=== PATIENT | male | born 1970 | race African-American/Black ===

== ENCOUNTER 2021-11-17 23:34 | Emergency (ER) | payer OTHER, SELFPAY ==
[2021-11-17] MEDS ORDERED: Boostrix 0.5 ML (Tdap) VIAL ONE (23:40)
[2021-11-17] MEDS ORDERED: CEFAZOLIN 1 GM VIAL ONE ×2 (23:41→23:42)
[2021-11-17 23:49] LABS: #Basophils 0.1 thou/uL (0.0-0.2); #Eosinphils 0.1 thou/uL (0.0-0.7); #Monocytes 0.7 thou/uL (0.11-0.59); #Neutrophils 4.4 thou/uL (1.40-6.50); %Basophils 1.1 % (0.0-1.0); %Eosinophils 1.2 % (0.0-10.0); %Lymphocytes 27.7 % (21.0-51.0); %Monocytes 9.8 % (0.0-10.0); %Neutrophils 60.3 % (42.0-75.0); Hemoglobin 14.3 g/dL (14.0-18.0); Mean Corpuscular HGB CONC 34.6 g/dL (32.0-36.0); Mean Corpuscular Hemoglobin 34.4 pg (27.0-31.0); Mean Corpuscular Volume 99.5 fL (78.0-98.0); Mean Platelet Volume 6.1 fL (7.4-10.4); Platelet Count 253 thou/uL (130-400); RBC Distribution Width 11.2 % (11.5-14.5); Red Blood Cell (RBC) Count 4.14 mill/uL (4.70-6.10); White Blood Cell (WBC) Count 7.3 thou/uL (4.8-10.8)
[2021-11-18 00:01] LABS: INR-International Normal Ratio 0.9; PTT 28.7 sec (22.9-36.1); Prothrombin Time 12.3 sec (12.0-14.7)
[2021-11-18 00:07] LABS: ALT (SGPT) 10 U/L (8-55); AST (SGOT) 21 U/L (5-34); Albumin 4.6 g/dL (3.5-5.0); Alkaline Phosphatase 109 U/L (40-110); Anion Gap 18 mmol/L (10-20); BUN (Urea Nitrogen) 18 mg/dL (8.9-20.6); Bilirubin, Total 0.2 mg/dL (0.2-1.2); Calc. Creatinine Clearance 0 mL/min (70-130); Calcium 9.4 mg/dL (7.8-10.44); Carbon Dioxide 19 mmol/L (22-29); Chloride 106 mmol/L (98-107); Globulin 3.4 g/dL (2.4-3.5); Glucose 93 mg/dL (70-105); Potassium 4.3 mmol/L (3.5-5.1); Sodium 139 mmol/L (136-145)
== END 2021-11-18 01:25 | disposition home or self-care (01) ==
LOC: ERS 23:34
DX: S71.131A Puncture wound without foreign body, right thigh, initial encounter (principal); W34.09XA Accidental discharge from other specified firearms, initial encounter; Z23 Encounter for immunization
CPT/HCPCS: 80053; 83605; 85025; 85610; 85730; 86850; 86900; 86901; 90471; 90715; 96374; J0690

== ENCOUNTER 2023-06-13 18:27 | Emergency (ER) | payer OTHER, SELFPAY ==
[2023-06-13] MEDS ORDERED: HYDROcodone/Acetaminophen 5/325 mg Tablet ONE ×2 (20:17→21:28)
== END 2023-06-13 23:54 | disposition home or self-care (01) ==
LOC: ERS 18:27
DX: S82.62XA Displaced fracture of lateral malleolus of left fibula, initial encounter for closed fracture (principal); I10 Essential (primary) hypertension; F17.210 Nicotine dependence, cigarettes, uncomplicated; W17.89XA Other fall from one level to another, initial encounter; Z79.899 Other long term (current) drug therapy
CPT/HCPCS: 29515